=== PATIENT | female | born 1965 | race Caucasian/White ===

== ENCOUNTER 2020-03-20 18:13 | Emergency (ER) | payer BC, SELFPAY ==
--- NOTE | 2020-03-20 18:23 | ED.GENADULT ---
HPI - General Adult General Chief complaint: Unspecified Stated complaint: swollen neck History of Present Illness HPI narrative: This is a 55-year-old female comes in complaining of a bug bite to the back of the neck. Patient states that the incident happened on Tuesday she is not for sure what she is been bitten by. Patient said the area was slightly swollen and itchy and remains itchy. Patient informed me that on the right side of her neck started to swell and is hurting with some slight ear pain. Patient denies any fever nausea and/or vomiting Related Data Home Medications Medication Instructions Recorded Confirmed atorvastatin 40 mg PO DAILY 03/20/20 03/20/20 latanoprost 1 drp OPHTHALMIC (EYE) DAILY 03/20/20 03/20/20 lisinopril 10 mg PO DAILY 03/20/20 03/20/20 metformin 500 mg PO DAILY 03/20/20 03/20/20 Allergies Allergy/AdvReac Type Severity Reaction Status Date / Time latex Allergy Severe Anaphylactic Verified 03/20/20 18:30 Shock, HIVES Review of Systems Review of Systems: Narrative: CONSTITUTIONAL: Denies fever, chills, or sweats. EYES: Denies visual changes, redness, or discharge. ENT: Denies rhinorrhea, congestion, sore throat, or otalgia. CARDIOVASCULAR:Denies chest pain, palpitations, or edema. RESPIRATORY: Denies cough or dyspnea. GASTROINTESTINAL: Denies abdominal pain, nausea, vomiting, or diarrhea. GENITOURINARY: Denies dysuria or hematuria. SKIN:[Denies rash or itching. rash on midline of neck and pain right ear MUSCULOSKELETAL:Denies back pain, joint pain, or myalgia. NEUROLOGIC: Denies headache, numbness, or weakness. PSYCHIATRIC:Denies anxiety or depression PMFSH Comments At time as signature, I have reviewed and agree with nursing past medical, social, surgical and family history. Please see nursing chart for further information. There is no relevant family history pertinent to the presenting complaint. Exam Narrative: Exam Narrative: GENERAL:Well-appearing, well-nourished, and in no acute distress. HEAD:Normocephalic, atraumatic. EYES: PERRLA and EOMI. ENT: Nares clear, no rhinorrhea or epistaxis. Mucous membranes moist. NECK: Supple.midline swollen with erythema nodule on the right side of the neck is two enlarged lymph nodes and one right behind the right ear. Auditory canal slightly swollen and dry and itchy CHEST: Clear to auscultation. No respiratory distress. HEART: Regular rate and rhythm. No murmur heard. Normal peripheral pulses. ABDOMEN: Soft, nontender, nondistended, normal active bowel sounds. EXTREMITIES: Normal range of motion. No edema. SKIN: Warm, dry, no rash. NEURO: No focal deficits. Alert and oriented x3. Course Course Emergency Course: Your blood pressure was elevated in the clinic today, I feel that this is due to your acute illness rather than essential hypertension. please follow-up with your regular doctor for further evaluation and monitor for evaluation of hypertension Please BIRGIT schedule a followup visit with your personal physician with in the next 1-4 weeks for further evaluation and treatment. Also, ask your personal physician to assist you regarding blood pressure. Even blood pressure exceeding 120/80 may indicate pre-hypertension. If your symptoms persist, change or worsen significantly before you can contact your personal physician then please, without delay, go to the emergency department for further evaluation. Discharge Plan Discharge Clinical Impression: Lymphadenitis, acute, Insect bite, Otitis externa Patient Disposition: Home, Self-Care Condition: Stable Instructions: Antibiotic Form, Otitis Externa (DC), Insect Bite or Sting (ED), Lymphadenopathy (ED) Additional Instructions: Use skin creams/lotion, such as those containing calamine or pramoxine to reduce itchiness Avoid scratching when possible to prevent worsening of the condition and disruption of the skin that could lead to bacterial infection To relieve itching, place a
[2020-03-20 18:25] VITALS: BP 144/75; PULSE 81; RESP 18; TEMP 36.9; O2SAT 99
== END 2020-03-20 18:55 | disposition home or self-care (01) ==
PROVIDERS: Emergency Provider Nurse Practitioner Family
DX: L04.9 Acute lymphadenitis, unspecified (principal); S10.96XA Insect bite of unspecified part of neck, initial encounter; H60.91 Unspecified otitis externa, right ear; W57.XXXA Bitten or stung by nonvenomous insect and other nonvenomous arthropods, initial encounter
CPT/HCPCS: 99213; G0463

== ENCOUNTER 2023-08-06 16:09 | Emergency (ER) | payer BC, SELFPAY ==
[2023-08-06 16:31] VITALS: BP 142/70; PULSE 75; RESP 18; TEMP 36.9; O2SAT 98
--- NOTE | 2023-08-06 16:55 | ED.URI ---
HPI - URI/Sore Throat General Chief Complaint: Upper Respiratory Infection Stated Complaint: congestion,bilateral ear pain Time Seen by Provider: 08/06/23 16:40 Source: patient and RN notes reviewed Mode of arrival: ambulatory Limitations: no limitations History of Present Illness HPI Narrative: Patient presents today with a 2 week history of sore throat, rhinorrhea, productive cough, bilateral ear pain and pain to her upper teeth. Headache has developed over the last 2 days. States her symptoms had improved, but then worsened again a few days ago. She has tried allergy medicine, ibuprofen, saline nasal spray, Flonase, and Coricidin without much relief. Related Data Home Medications Medication Instructions Recorded Confirmed atorvastatin 40 mg tablet 40 mg PO DAILY 03/20/20 08/06/23 latanoprost 0.005 % eye drops 1 drp ophthalmic (eye) DAILY 03/20/20 08/06/23 lisinopril 10 mg tablet 10 mg PO DAILY 03/20/20 08/06/23 metformin 500 mg tablet 500 mg PO DAILY 03/20/20 08/06/23 Allergies Allergy/AdvReac Type Severity Reaction Status Date / Time latex Allergy Severe Anaphylactic Verified 08/06/23 16:36 Shock, HIVES Review of Systems Review of Systems: CONSTITUTIONAL: Denies body aches, fever, chills, or sweats. EYES: Denies visual changes, redness, or discharge. ENT: Denies rhinorrhea.+ sore throat, rhinorrhea, bilateral ear pain CARDIOVASCULAR: Denies chest pain, palpitations, or edema. RESPIRATORY: Denies dyspnea.+ cough GASTROINTESTINAL: Denies abdominal pain, nausea, vomiting, or diarrhea. GENITOURINARY: Denies dysuria or hematuria. SKIN: Denies rash, itching, or wounds. MUSCULOSKELETAL: Denies back pain, joint pain, or myalgia. NEUROLOGIC: Denies numbness, tingling, or weakne+ headache ss. PSYCH: Denies depression or anxiety. [facility] Past Medical History Medical History (Updated 08/06/23 @ 16:59 by Ml Short, PERSONNEL MONITOR, ) Hypertension Comments At time of signature, I have reviewed and agree with nursing past medical, surgical, social and family history unless otherwise noted. Please see nursing chart for further information. There is no relevant family history pertinent to the presenting complaint Exam Narrative: GENERAL: Well-appearing, well-nourished, and in no acute distress. HEAD: Normocephalic, atraumatic. EYES: EOMI. No redness or drainage. Conjunctivae normal. ENT: Mucous membranes pink and moist. Nares congested. No rhinorrhea. TMs normal bilaterally. Throat normal. Uvula midline. Bilateral frontal and maxillary sinus tenderness. NECK: Normal AROM. Supple. No lymphadenopathy. CHEST: No respiratory distress. Clear to auscultation. HEART: Regular rate and rhythm. No murmur appreciated. EXTREMITIES: Normal range of motion. No edema. SKIN: Warm, dry, no rash. Capillary refill normal. Normal skin turgor. NEURO: No focal deficits. Alert and oriented x3. Gait steady. PSYCH: Normal affect. No signs of depression or anxiety. Course Course Level of Care: Express Care Visit Vital Signs Vital signs: Vital Signs Temperature 98.5 F 08/06/23 16:31 Pulse Rate 75 08/06/23 16:31 Respiratory Rate 18 08/06/23 16:31 Blood Pressure 142/70 H 08/06/23 16:31 Pulse Oximetry 98 08/06/23 16:31 Oxygen Delivery Room Air 08/06/23 16:31 Temperature 98.5 F 08/06/23 16:31 Pulse Rate 75 08/06/23 16:31 Respiratory Rate 18 08/06/23 16:31 Blood Pressure 142/70 H 08/06/23 16:31 Pulse Oximetry 98 08/06/23 16:31 Oxygen Delivery Room Air 08/06/23 16:31 Reviewed MDM - URI/Sore Throat MDM Narrative Medical decision making narrative: Patient will be treated with Augmentin for sinusitis. Discussed [id number] medication treatment as well. Anticipatory guidance given. Differential Diagnosis Differential diagnosis: Likely upper respiratory infection, otitis media, sinusitis, bronchitis and pharyngitis Critical Care Time Critical Care Time Crit
== END 2023-08-06 17:03 | disposition home or self-care (01) ==
PROVIDERS: Emergency Provider Nurse Practitioner
DX: J01.90 Acute sinusitis, unspecified (principal); I10 Essential (primary) hypertension
CPT/HCPCS: 99213; G0463

== ENCOUNTER 2023-12-24 08:56 | Emergency (ER) | payer BC, SELFPAY ==
--- NOTE | 2023-12-24 09:05 | ED.GENADULT ---
HPI - General Adult General Chief complaint: Extremity Problem,Nontraumatic Stated complaint: lt hip pain Time Seen by Provider: 12/24/23 09:05 Source: patient Mode of arrival: ambulatory Limitations: no limitations History of Present Illness HPI narrative: 58-year-old female patient presents to [facility] with complaints of left hip pain that radiates to the left knee for the past 3 days. Patient denies any trauma or falling that she is aware of. Patient states that she typically walks about 5 miles a day and recently had a long car trip about 10 hours that she got home from on Tuesday. Patient states she has pain worse in the morning when she 1st wakes up and states it takes her about 10 minutes to get her hip relaxed. Patient states she feels better when she is standing and walking around. Patient states it hurts worse when sitting. Patient states she has taken some ibuprofen and Tylenol with minimal relief. Related Data Home Medications Medication Instructions Recorded Confirmed atorvastatin 40 mg tablet 40 mg PO DAILY 03/20/20 12/24/23 latanoprost 0.005 % eye drops 1 drp ophthalmic (eye) DAILY 03/20/20 12/24/23 lisinopril 10 mg tablet 10 mg PO DAILY 03/20/20 12/24/23 metformin 500 mg tablet 500 mg PO DAILY 03/20/20 12/24/23 Allergies Allergy/AdvReac Type Severity Reaction Status Date / Time latex Allergy Severe Anaphylactic Verified 12/24/23 09:08 Shock, HIVES Review of Systems Review of Systems: CONSTITUTIONAL: Denies fever, chills, or sweats. EYES: Denies visual changes, redness, or discharge. ENT: Denies rhinorrhea, congestion, sore throat, or otalgia. CARDIOVASCULAR: Denies chest pain, palpitations, or edema. RESPIRATORY: Denies cough or dyspnea. GASTROINTESTINAL: Denies abdominal pain, nausea, vomiting, or diarrhea. GENITOURINARY: Denies dysuria or hematuria. SKIN: Denies rash or itching. MUSCULOSKELETAL: Denies back pain, Left hip pain, positive myalgia. NEUROLOGIC: Denies headache, numbness, or weakness. PSYCHIATRIC: Denies anxiety or depression. [facility] Past Medical History Medical History Asthma allergy induced Diabetes Glaucoma Hypercholesteremia Hypertension Surgical History Surgical History H/O eye surgery Comments At the time of my signature I agree with nursing past medical history, surgical, social, and family history. There is no relevant family history pertinent to the presenting complaint. Exam Narrative: GENERAL: Well-appearing, well-nourished, and in no acute distress. HEAD: Normocephalic, atraumatic. EYES: PERRLA and EOMI. ENT: Nares clear, no rhinorrhea or epistaxis. Mucous membranes moist. NECK: Supple. No lymphadenopathy CHEST: Clear to auscultation. No respiratory distress. HEART: Regular rate and rhythm. No murmur heard. Normal peripheral pulses. ABDOMEN: Soft, nontender, nondistended, normal active bowel sounds. BACK: Patient is able to ambulated without assistance. Pt is Standing in no obvouis distress. No surface trauma noted. No muscle tenderness to Palpation to the back. No spasm or mass. No step-offs or deformity noted to the cervical, thoracic or lumbar spine to firm Palpation at the midline. No CVA tenderness to percussion. No saddle anesthesia. ROM: able to stand erect. Normal flexion, extension, Lateral bending and rotation without limitation or complaint of pain. EXTREMITIES: patient is ambulating normally on bilateral lower extremities. patient has excellent range of motion to the left hip. There is tenderness to the middle of the buttocks right over the sciatic nerve when pressure is applied. Patient states that that reproduces the pain that radiates down to the knee. SKIN: Warm, dry, no rash. NEURO: No focal deficits. Alert and oriented x3. Course Course Level of Care: Express Care Visit Vital Signs Vital signs: Silvia
[2023-12-24 09:09] VITALS: BP 122/71; PULSE 93; RESP 16; TEMP 36.8; O2SAT 97
== END 2023-12-24 09:30 | disposition home or self-care (01) ==
PROVIDERS: Emergency Provider Nurse Practitioner Family
DX: M54.32 Sciatica, left side (principal); J45.909 Unspecified asthma, uncomplicated; E78.00 Pure hypercholesterolemia, unspecified; I10 Essential (primary) hypertension; E11.39 Type 2 diabetes mellitus with other diabetic ophthalmic complication; H42 Glaucoma in diseases classified elsewhere; Z79.84 Long term (current) use of oral hypoglycemic drugs
CPT/HCPCS: 99213; G0463